=== PATIENT | male | born 1955 | race Caucasian/White ===

== ENCOUNTER 2017-11-26 10:18 | Day surgery (SDC) | payer OTHER, SELFPAY ==
[2017-11-26] VITALS (17 sets, daily range): BP systolic 95–138; BP diastolic 54–88; PULSE 69–88; RESP 14–20; TEMP 36.4–37.3; O2SAT 81–98; BMI 36.6
--- NOTE | 2017-11-26 | PATH_ITS ---
[facility] Accession Number: [id number] . 01 Material submitted: . APPENDIX . 02 Diagnosis: Appendix: Acute appendicitis. MRV/12/01/2017 . 02 Electronically signed: . Guanako Saenz MD, Pathologist NPI- [id number] . 01 Gross description: . The specimen is received in a container of formalin labeled with the patient's name and designated appendix. The specimen consists of a vermiform appendix measuring 6.0 cm long with an average diameter of 0.9 cm. The proximal margin is slightly more dilated. The proximal margin is stapled closed and will be painted with ink. The lumen is focally dilated and contains brown thick fluid. The wall is intact. No ruptured sites are grossly noted. The serosal surface is dull pink and baumann-robbins. The distal tip and mid portion are focally covered by fibrous adhesions. No definite exudate is grossly noted. Rn Field sections submitted in cassettes A1 and A2. ([id number]) /[facility] . 02 Pathologist provided ICD-10: K35.80 . 02 CPT . [id number] Performed at: 01 [facility] [address] [facility] [place] [facility] [place], [place], [place] [id number] MD Bismark Saucedo MD Phone: [phone] Performed at: 02 [facility] [address] [place], [place] [id number] MD Salvatore Viveros MD Phone: [phone]
[2017-11-26 10:37] LABS: Appearance Urine UA CLEAR; Bilirubin Urine UA NEGATIVE (NEGATIVE); Color Urine UA YELLOW; Glucose Urine UA NEGATIVE (Negative); Ketones Urine UA 1+ (NEGATIVE); Leukocyte Esterase Urine UA NEGATIVE (NEGATIVE); Nitrite Urine UA Negative (Negative); Occult Blood Urine UA TRACE-LYSED (Negative); Protein Urine UA NEGATIVE (Negative); Specific Gravity Urine UA 1.025 (1.000-1.035); Urobilinogen Urine UA 0.2 E.U./dL (0.2)
--- NOTE | 2017-11-26 10:52 | ED_ITS ---
HPI - Abdominal Pain General Chief Complaint: Abdominal Pain Stated Complaint: RIGHT SIDE ABDOMINAL PAIN Time Seen by Provider: 11/26/17 10:37 Source: patient and family Mode of arrival: ambulatory Limitations: no limitations History of Present Illness HPI narrative: Patient is a 62-year-old male who presents with abdominal pain. He said it started less start will confirm asleep more on the right side. He has had kidney stones in the past this is not quite feel like a kidney stone. He feels slightly nauseated but no vomiting. He has not had any fever. Yesterday he was feeling his normal self. He had barbecue for dinner. complaint: abdominal pain Related Data Home Medications Medication Instructions Recorded Confirmed aspirin 81 mg tablet,delayed 81 mg PO QPM 11/26/17 11/26/17 release atorvastatin 20 mg tablet 20 mg PO QPM 11/26/17 11/26/17 escitalopram 10 mg tablet 10 mg PO QPM 11/26/17 11/26/17 metoprolol tartrate 75 mg tablet 75 mg PO BID 11/26/17 11/26/17 Allergies Allergy/AdvReac Type Severity Reaction Status Date / Time No Known Drug Allergies Allergy Verified 11/26/17 14:16 Review of Systems Review of Systems All systems reviewed & are unremarkable except as noted in HPI and below Constitutional Denies chills, Denies fever(s), Denies lethargy and Denies weakness Cardiovascular Denies chest pain, Denies irregular heart rhythm, Denies lightheadedness, Denies palpitations, Denies dyspnea, Denies dyspnea on exertion and Denies orthopnea Respiratory Denies cough, Denies dyspnea, Denies dyspnea on exertion and Denies wheezing Gastrointestinal Gastrointestinal: Reports as per HPI, Reports system reviewed and no additional complaints, except as docu and Reports abdominal pain Musculoskeletal Denies back pain, Denies muscle weakness, Denies numbness and Denies tingling Neurologic Denies numbness, Denies tingling and Denies weakness Endocrine Denies palpitations Allergic/Immunologic Denies wheezing PFSH Medical History Cancer of kidney (Acute) Kidney stones (Acute) Hyperlipidemia (Chronic) Hypertension (Chronic) Surgical History History of nephrectomy (Resolved) Family History: Reviewed 11/26/17 by Raman Sykes MD Social History Smoking Status: Never smoker Exam Initial Vital Signs Initial Vital Signs: Vital Signs Temperature 98.2 F 11/26/17 10:24 Pulse Rate 78 11/26/17 10:24 Respiratory Rate 15 11/26/17 10:24 Blood Pressure 116/82 H 11/26/17 10:24 Pulse Oximetry 97 11/26/17 10:24 Const General: cooperative and well developed Nutritional Appearance: well nourished Orientation: alert, awake, oriented x3 and not confused Resp Effort & Inspection: normal respiratory effort, able to speak in complete sentences, no respiratory distress and no use of accessory muscles Auscultation: clear to auscultation bilaterally, no rales, no rhonchi and no wheezes Cardio Rate: regular rate Rhythm: regular rhythm Heart Sounds: no click, no gallops, no murmurs and no rubs Pulses: normal peripheral pulses GI Inspection: normal to inspection and non-distended Palpation: tender (Mild tenderness right lower quadrant and right side, no right upper quadrant tenderness negative Rojas sign) Skin General: no rashes or lesions noted, No jaundice and No petechiae Neuro General: alert, awake and oriented x3 Cranial Nerves: CN's II-XI intact bilaterally Course Orders Ordered: ED Orders 11/26/17 10:23 Urinalysis and Microscopic Stat 11/26/17 11:00 Complete Blood Count AUTO DIFF Stat Comprehensive Metabolic Panel Stat Lipase Stat 11/26/17 11:35 CT abdomen pelvis w con Stat Sodium Chloride (Normal Saline 0.9%) 1,000 mls @ 1,000 mls/hr IV CONT JOANA Last Infusion: 11/26/17 14:06 Dose: 0 mls/hr Admin: 11/26/17 11:27 Dose: 1,000 mls/hr Lactated Ringer's (Lactated Ringers) 1,000 mls @ 42 mls/hr IV CONT JOANA Last Admin: 11/26/17 14:06 Dose: 42 mls/hr Sodium Chloride (Normal Saline 0.9%) 1,000 mls @ 100 mls/hr IV CONT JOANA Discontinued Medications Cefotetan Disodium/Dextrose (Cefotan) 2 gm in 50 mls @ 0 mls/hr IV NOW ONE Stop: 11/26/17 14:05 Last Admin: 11/26/17 14:07 Dose: 50 mls/hr Ketorolac Tromethamine (Toradol) 30 mg IV NOW ONE Stop: 11/26/17 10:48 Last Admin: 11/26/17 11:25 Dose: 30 mg Consultations Consultation #1: Dr. Sykes in ED to evaluate. Vital Signs - 8 hr 11/26/17 10:24 11/26/17 11:45 11/26/17 13:00 Temperature 98.2 F Pulse Rate 78 84 71 Respiratory Rate 15 17 15 Blood Pressure 116/82 H Blood Pressure [Right Arm] 117/85 H 114/74 Pulse Oximetry 97 95 96 11/26/17 13:57 11/26/17 14:02 Temperature 98.5 F Pulse Rate 71 73 Respiratory Rate 15 20 Blood Pressure 130/86 H 138/88 H Blood Pressure [Right Arm] Pulse Oximetry 98 98 MDM - Abdominal Pain Lab Data Result diagrams: 11/26/17 11:00 11/26/17 11:00 Lab Results 11/26/17 11/26/17 11/26/17 Range/Units 10:23 11:00 11:00 WBC 9.9 (4.5-11.0) X10^3/uL RBC 4.60 (4.5-5.9) X10^6/uL Hgb 13.7 (13.5-17.5) g/dL Hct 40.4 L (41-53) % MCV 87.9 (80-100) fL MCH 29.8 (26-34) PG MCHC 33.9 (30-36) % RDW 14.3 (11.6-14.8) % Plt Count 212 (150-400) X10^3/uL Neut % (Auto) 84.6 H (50-75) % Lymph % (Auto) 9.4 L (25-40) % [place] % (Auto) 5.3 (3-14) % Eos % (Auto) 0.4 L (2-4) % Baso % (Auto) 0.3 (0-2) % Neut # (Auto) 8400 H (8618-1778) /uL Sodium 140 (137-145) mmol/L Potassium 4.3 (3.4-5.1) mmol/L Chloride 106 (98-107) mmol/L Carbon Dioxide 23 (22-32) mmol/L BUN 21 H (9-20) mg/dL Creatinine 0.90 (0.66-1.25) mg/dL Estimated GFR > 60.0 (>60) mL/min BUN/Creatinine Ratio 23.3 H (6-22) Glucose 110 (80-110) mg/dL Calcium 9.3 (8.4-10.2) mg/dL Total Bilirubin 0.5 (0.2-1.3) mg/dL AST 27 (17-59) IU/L ALT 59 (21-72) IU/L Alkaline Phosphatase 72 (38-126) U/L Total Protein 7.2 (6.3-8.2) g/dL Albumin 4.3 (3.5-5.0) g/dL Globulin 2.9 (1.7-4.1) g/dL Albumin/Globulin Ratio 1.5 (1.0-2.8) Lipase 100 (23-300) U/L Urine Color Yellow Urine Appearance Clear Urine pH 5.0 (4.5-8.0) Ur Specific [place] 1.025 (1.000-1.035) Urine Protein Negative (Negative) Urine Glucose (UA) Negative (Negative) g/dL Urine Ketones 1+ H (NEGATIVE) Urine Occult Blood Trace-lysed (Negative) Urine Nitrate Negative (Negative) Urine Bilirubin Negative (NEGATIVE) Urine Urobilinogen 0.2 (0.2) E.U./dL Ur Leukocyte Esterase Negative (NEGATIVE) Urine RBC 0-1/hpf (0-5/HPF) Urine WBC 0-1/hpf (0-5/HPF) Urine Bacteria Few (2-10) H (None) Ur Culture Indicated? Cult not indicated Micro UA Comment Not Reportable Imaging Data CT scan - abdomen: Attestation: I personally reviewed and interpreted this imaging study as follows: Radiologist's impression: PROCEDURE: CT ABDOMEN PELVIS W CON INDICATIONS: right lower quad TECHNIQUE: After the administration of intravenous contrast, 5 mm thick sections acquired from the diaphragm to the symphysis. 5 mm coronal and sagittal reformats were acquired. For radiation dose reduction, the following was used: automated exposure control, adjustment of mA and/or kV according to patient size. COMPARISON: None. FINDINGS: Image quality: Excellent. ABDOMEN: Lung bases: Lung bases are clear. Heart size is normal. Solid organs: Liver is normal in size and enhancement. Gallbladder is unremarkable. Biliary system is non dilated. Pancreas enhances normally. Spleen is normal in size and enhancement. No adrenal nodules. The kidneys demonstrate normal enhancement, without hydronephrosis. Deformity is present within the left kidney appearing postoperative. Peritoneum and bowel: Bowel loops are nonobstructive. The appendix is enlarged measuring 16 mm with surrounding inflammatory change. There is no appendicolith. No visualized perforation. No free fluid or air. Nodes and vessels: No retroperitoneal or mesenteric adenopathy by size criteria. Aorta and inferior vena cava are normal in size. Miscellaneous: No ventral hernias. PELVIS: Genitourinary: Bladder wall thickness is normal. Soft tissue density is present within the posterior bladder appearing to become contiguous with an enlarged prostate gland. Miscellaneous: No inguinal hernias or adenopathy. Bones: No suspicious bony lesions. No vertebral body compression fractures. IMPRESSION: 1. Markedly enlarged appendix with surrounding inflammatory change consistent with acute appendicitis. No visualized perforation or appendicolith. 2. Soft tissue density is present in the posterior inferior bladder appearing to become contiguous with an enlarged prostate gland. If concern for bladder neoplasm exists, contrast study allowing delayed images for contrast within the bladder is recommended. The above findings were discussed with Dr. Galilea Nice on 11/26/17 at 11:15 AM [place]. Dictated by: Bertha Freire M.D. on 11/26/2017 at 11:06 Approved by: Bertha Freire M.D. on 11/26/2017 at 11:20 MDM Narrative Medical decision making narrative: Patient's pain is much better after Toradol. No leukocytosis. CT does confirm acute appendicitis. Discharge Plan Departure Patient Disposition: Admitted As Inpatient Clinical Impression: Acute appendicitis Discharge Date/Time: 11/26/17 14:03 Interventions: ED Discharge Assessment Last Done: 11/26/17 13:57 Admit Date/Time: 11/26/17 13:53 Admit Provider: Raman Sykes
[2017-11-26 11:09] LABS: RBC Urine 0-1/HPF (0-5/HPF); WBC Urine 0-1/HPF (0-5/HPF)
[2017-11-26 11:10] LABS: Bacteria Urine Few (2-10); Culture Indicated Urine Cult Not Indicated
[2017-11-26 11:12] LABS: Add Manual Diff / Slide Review NO; Basophils Percent Auto 0.3 % (0-2); Eosinophils Percent Auto 0.4 % (2-4); Hematocrit 40.4 % (41-53); Hemoglobin 13.7 g/dL (13.5-17.5); Lymphocytes Percent Auto 9.4 % (25-40); Mean Corpuscular HGB Conc 33.9 % (30-36); Mean Corpuscular Hemoglobin 29.8 PG (26-34); Mean Corpuscular Volume 87.9 fL (80-100); Monocytes Percent Auto 5.3 % (3-14); Neutrophils Absolute Auto 8400 /uL (3000-5900); Neutrophils Percent Auto 84.6 % (50-75); Platelet Count 212 X10^3/uL (150-400); Red Cell Distribution Width 14.3 % (11.6-14.8); White Blood Cell Count 9.9 X10^3/uL (4.5-11.0)
[2017-11-26 11:25] LABS: Alanine Aminotransferase 59 IU/L (21-72); Albumin 4.3 g/dL (3.5-5.0); Albumin Globulin Ratio 1.5 (1.0-2.8); Alkaline Phosphatase 72 U/L (38-126); Aspartate Aminotransferase 27 IU/L (17-59); BUN Creatinine Ratio 23.3 (6-22); Bilirubin Total 0.5 mg/dL (0.2-1.3); Blood Urea Nitrogen 21 mg/dL (9-20); Calcium 9.3 mg/dL (8.4-10.2); Carbon Dioxide 23 mmol/L (22-32); Chloride 106 mmol/L (98-107); Estimated Glomerular Filt Rate > 60.0 mL/min (>60); Globulin 2.9 g/dL (1.7-4.1); Glucose 110 mg/dL (80-110); HEMOLYSIS < 15 (0-50); Lipase 100 U/L (23-300); Potassium 4.3 mmol/L (3.4-5.1); Sodium 140 mmol/L (137-145); Total Protein 7.2 g/dL (6.3-8.2)
[2017-11-26] MEDS: KETOROLAC 60 MG/2 ML VIAL 30 MG IV (11:25)
[2017-11-26] MEDS: SODIUM CHLORIDE 0.9% 1,000 ML 1000 ML IV (11:27)
--- NOTE | 2017-11-26 11:35 | DI.CT.S_ITS ---
PROCEDURE: CT ABDOMEN PELVIS W CON INDICATIONS: right lower quad TECHNIQUE: After the administration of intravenous contrast, 5 mm thick sections acquired from the diaphragm to the symphysis. 5 mm coronal and sagittal reformats were acquired. For radiation dose reduction, the following was used: automated exposure control, adjustment of mA and/or kV according to patient size. COMPARISON: None. FINDINGS: Image quality: Excellent. ABDOMEN: Lung bases: Lung bases are clear. Heart size is normal. Solid organs: Liver is normal in size and enhancement. Gallbladder is unremarkable. Biliary system is non dilated. Pancreas enhances normally. Spleen is normal in size and enhancement. No adrenal nodules. The kidneys demonstrate normal enhancement, without hydronephrosis. Deformity is present within the left kidney appearing postoperative. Peritoneum and bowel: Bowel loops are nonobstructive. The appendix is enlarged measuring 16 mm with surrounding inflammatory change. There is no appendicolith. No visualized perforation. No free fluid or air. Nodes and vessels: No retroperitoneal or mesenteric adenopathy by size criteria. Aorta and inferior vena cava are normal in size. Miscellaneous: No ventral hernias. PELVIS: Genitourinary: Bladder wall thickness is normal. Soft tissue density is present within the posterior bladder appearing to become contiguous with an enlarged prostate gland. Miscellaneous: No inguinal hernias or adenopathy. Bones: No suspicious bony lesions. No vertebral body compression fractures. IMPRESSION: 1. Markedly enlarged appendix with surrounding inflammatory change consistent with acute appendicitis. No visualized perforation or appendicolith. 2. Soft tissue density is present in the posterior inferior bladder appearing to become contiguous with an enlarged prostate gland. If concern for bladder neoplasm exists, contrast study allowing delayed images for contrast within the bladder is recommended. The above findings were discussed with Dr. Galilea Nice on 11/26/17 at 11:15 AM [facility]. Dictated by: Bertha Freire M.D. on 11/26/2017 at 11:06 Approved by: Bertha Freire M.D. on 11/26/2017 at 11:20
--- NOTE | 2017-11-26 13:58 | P.HP_ITS ---
History of Present Illness Date Patient Seen: 11/26/17 Time Patient Seen: 13:52 Chief complaint: RIGHT SIDE ABDOMINAL PAIN Narrative: Sridhar Archibald is a 62 year old male who presented to the emergency department with acute onset of right lower quadrant abdominal pain that began late last evening. 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 Pain is described as sharp and nonradiating. Pain is unrelenting. Symptoms are exacerbated by activity including riding in the automobile to the emergency department. Denies any fever or chills. No nausea or vomiting. Reports normal bowel function yesterday. Last ate a normal meal last evening but is currently anorexic. Denies dysuria or hematuria. Patient History Medical History Cancer of kidney (Acute) Kidney stones (Acute) Hyperlipidemia (Chronic) Hypertension (Chronic) Surgical History History of nephrectomy (Resolved) Family & Social History Family History: Reviewed 11/26/17 by Raman Sykes MD Safety & Behavioral: Feels Safe in Current Yes Environment Tobacco & Substance use: Smoking Status Never smoker alcohol intake frequency a few times a week Substance Use Type does not use Meds Home Medications Medication Instructions Recorded Confirmed Type aspirin 81 mg tablet,delayed 81 mg PO QPM 11/26/17 11/26/17 History release atorvastatin 20 mg tablet 20 mg PO QPM 11/26/17 11/26/17 History escitalopram 10 mg tablet 10 mg PO QPM 11/26/17 11/26/17 History metoprolol tartrate 75 mg tablet 75 mg PO BID 11/26/17 11/26/17 History Allergies Allergy/AdvReac Type Severity Reaction Status Date / Time No Known Drug Allergies Allergy Verified 11/26/17 10:24 Review of Systems Review of Systems All systems reviewed & are unremarkable except as noted in HPI and below Exam Vital Signs (past 8 hours): Vital Signs - 8 hr 3 11/26/17 10:24 11/26/17 11:45 11/26/17 13:00 Temperature 98.2 F Pulse Rate 78 84 71 Respiratory Rate 15 17 15 Blood Pressure 116/82 H Blood Pressure [Right Arm] 117/85 H 114/74 Pulse Oximetry 97 95 96 Pulse Oximetry 96 Oxygen Delivery Method Room Air Narrative Exam Narrative: Well-nourished well-developed moderately obese male lying comfortably in bed in no acute distress. is at the bedside. Alert orient x3. Afebrile in the emergency department. No tachycardia. Sclera are nonicteric Neck is supple Chest clear to auscultation bilaterally Abdomen is soft and nondistended but obese. No masses. He is focally tender in the right lower quadrant over McBurney's point with obvious involuntary guarding. No rebound tenderness. No hepatomegaly. He has a well-healed left upper quadrant subcostal scar consistent with prior nephrectomy. Extremities show no clubbing, cyanosis, or edema. Dorsal pedis pulses are palpable bilaterally. Objective Labs Result Diagrams: 11/26/17 11:00 11/26/17 11:00 Labs: Laboratory Results - last 24 hr 11/26/17 11/26/17 11/26/17 10:23 11:00 11:00 WBC 9.9 RBC 4.60 Hgb 13.7 Hct 40.4 L MCV 87.9 MCH 29.8 MCHC 33.9 RDW 14.3 Plt Count 212 Neut % (Auto) 84.6 H Lymph % (Auto) 9.4 L [place] % (Auto) 5.3 Eos % (Auto) 0.4 L Baso % (Auto) 0.3 Neut # (Auto) 8400 H Sodium 140 Potassium 4.3 Chloride 106 Carbon Dioxide 23 BUN 21 H Creatinine 0.90 Estimated GFR > 60.0 BUN/Creatinine Ratio 23.3 H Glucose 110 Calcium 9.3 Total Bilirubin 0.5 AST 27 ALT 59 Alkaline Phosphatase 72 Total Protein 7.2 Albumin 4.3 Globulin 2.9 Albumin/Globulin Ratio 1.5 Lipase 100 Urine Color Yellow Urine Appearance Clear Urine pH 5.0 Ur Specific [place] 1.025 Urine Protein Negative Urine Glucose (UA) Negative Urine Ketones 1+ H Urine Occult Blood Trace-lysed Urine Nitrate Negative Urine Bilirubin Negative Urine Urobilinogen 0.2 Ur Leukocyte Esterase Negative Urine RBC 0-1/hpf Urine WBC 0-1/hpf Urine Bacteria Few (2-10) H Ur Culture Indicated? Cult not indicated Micro UA Comment Not Reportable Assessment & Plan Plan: Plan: 62-year-old male with signs and symptoms consistent with acute appendicitis. I personally reviewed the CT scan done to the emergency department which confirms an inflamed enlarged appendix. No obvious abscess or perforation at this point. I discussed my impression findings with the patient and his in detail. I recommend laparoscopic appendectomy. Technical details of the operation were discussed. Risks, benefits, alternatives were explained. Risks including but not limited to anesthesia, bleeding, infection, pain, abscess, scars, need to convert to open procedure, need for drains, appendiceal stump leak, mucocele, need for further surgery, need for interventional radiology procedures, colon injury, small bowel injury, liver injury, gastric injury, bladder injury, right ureter injury, and need for further major abdominal surgery were all discussed in detail. All questions were answered to his satisfaction, and he voiced understanding. Consent was placed on the chart. Proceed as above urgently to the OR this afternoon.
[2017-11-26] MEDS: LACTATED RINGERS 1,000 ML 42 ML IV ×2 (14:06→15:49)
[2017-11-26] MEDS: CEFOTETAN 2 GM/50 ML PIGGYBACK IV (14:07)
[2017-11-26] MEDS: BUPIVACAINE 0.5% (PF) 30 ML VIAL INJ (14:59)
[2017-11-26] MEDS: LIDOCAINE 1% W/EPI INJ 20 ML INJ (15:02)
--- NOTE | 2017-11-26 16:18 | P.OP_ITS ---
Operative Date/Time/Diagnoses - Date of procedure: 11/26/17 Time of procedure: 16:10 Pre-op diagnosis: Acute suppurative appendicitis Post-op diagnosis: same Procedure & Clinicians Procedure: Laparoscopic appendectomy Same procedure as scheduled: Yes Indications: 62-year-old male who presented with acute progressive right lower quadrant abdominal pain. Examination and evaluation were consistent with acute appendicitis. Urgent laparoscopic appendectomy was recommended today. Surgeon: Raman Sykes Click Yes if Unassisted: Yes Anesthesia Type: General Operative Notes Findings: 1. Acutely inflamed suppurative appendix without evidence of rupture or gross contamination. 2. Otherwise grossly normal small bowel, colon, liver, and omentum within the limitations of laparoscopic visualization Closure Type: primary Specimen(s): other (Appendix) Implants & Drains: None Applied: catheter (Schroeder catheter for the case subsequently removed prior to extubation) Estimated Blood Loss (mL): 25 Blood products transfused: none Procedure in detail: Patient is brought to the operating room placed supine on the table. After satisfactory induction of anesthesia a Schroeder catheter was inserted to decompress the urinary bladder. Abdomen was prepped and draped in usual sterile fashion. A SCOAP time-out was performed per standard protocol. A 1:1 mixture 1% lidocaine with 1:100,000 epinephrine and 0.5% plain Marcaine was injected in the skin and subcutaneous tissue at the superior aspect of the umbilicus for postoperative analgesia. Vertical midline incision was created at superior aspect of the umbilicus with a 11. Scalpel blade. Blunt dissection revealed the rectus fascia which was divided in the midline using a 11. Scalpel blade. Adalgisa clamps were used to secure the rectus fascia and elevated into the operative field. Two individual interrupted 0 Vicryl suture were placed to secure the fascia. Underlying peritoneum was entered under direct visualization between hemostats using a 11 scalpel blade. Blunt 12 mm Christianson trocar was then inserted and a carbon dioxide pneumoperitoneum was created. Abdomen was visually explored with a 30 degree 5 mm laparoscopic. Findings are as above. There was a small amount of free fluid around the appendix but no gross pus. Under direct laparoscopic visualization a lower midline incision was created with a 11 scalpel blade after achieving local anesthesia, and a 5 mm trocar was inserted under direct visualization. In a similar fashion the left lateral lower quadrant was anesthetized with local anesthesia and a 5 mm trocar was inserted. Camera was then relocated to the inferior 5 mm port and Colin graspers were inserted through the other 2 ports to manipulate the appendix. Barby cuadra was brought onto the operative field and inserted through the 12 mm port in order to perform dissection to isolate the mesoappendix and the base of the appendix from surrounding inflammatory tissue. Hemostasis was achieved on small vessels using monopolar cautery. A single application of the laparoscopic Endo-DARVIN 45 mm stapler with a vascular staple load was employed to divide the mesoappendix. However, there was evidence of bleeding between the rodrigo from the appendiceal artery which was then controlled with laparoscopic 5 mm clip device. Base of the appendix was divided with a 2nd application of the Endo-DARVIN 45 mm stapler using a standard tissue load. Specimen was placed in an endo- pouch and retrieved through the 12 mm umbilical trocar site. Copious amounts of sterile saline irrigation were then employed to irrigate the right lower quadrant, right pericolic gutter, and pelvis which was then suctioned from the abdomen and noted to be clear. Both staple lines were meticulously examined with the laparoscope and noted to be intact as well as hemostatic. Instruments and trocars were removed under direct visualization and hemostasis verified. Carbon dioxide was evacuated. Fascia at the umbilical site was secured with the previously placed 0 Vicryl suture. A 3rd 0 Vicryl suture was also placed to secure the closure. Skin at all 3 incisions was closed in a running subcuticular fashion with 4 0 Monocryl suture. Dermal adhesive was applied at the skin. Schroeder catheter was removed and anesthesia reversed. Patient extubated in the operating room. He was taken recovery in stable condition. Complications: none Condition: stable Disposition: PACU Plan for aftercare: 1. Admit to Surgical unit for ongoing convalescence. 2. Likely home tomorrow
[2017-11-26] MEDS: ESCITALOPRAM 10 MG TABLET PO (16:58)
[2017-11-26] MEDS: ATORVASTATIN 20 MG TABLET PO (16:58)
[2017-11-26] MEDS: ASPIRIN EC 81 MG TABLET PO (16:58)
--- NOTE | 2017-11-26 19:50 | PC.NURSE ---
Addendum entered by Crystal Piña R.N. 11/26/17 20:07: Pt up and ambulating in hallways, 4 laps of floor. Denies pain, I can tell i had a procedure. Drinking fluids, LFA SL and flushing well. Original Note: 1700- Pt arrived @ 1640 from PACU to room 218 via bed. VSS, 95%RA, LS clear, denies SOB. ABD soft, round, and non tender to palpatoin, 3 lap sites; umbilicus, MLQ and MLQ all well aproximated with dermabond, CDI. Denies ABD pain at this time, denies nausea, BT+, reg diet for dinner and tolerating well. Provided I.S. and using appropriately for 2500. Samsonrinal at bed side and instructed pt to use call light, if perfers to use BRP. , Chrissie in room. Call light in reach and bed alarm on for safety.
[2017-11-26] MEDS: METOPROLOL 25 MG TABLET 75 MG PO (21:01)
[2017-11-26] MEDS: OXYCODONE IR 5 MG TABLET PO (21:21)
[2017-11-27] MEDS: OXYCODONE IR 5 MG TABLET PO (01:06)
[2017-11-27 04:55] VITALS: BP 108/67; PULSE 75; RESP 16; TEMP 36.5; O2SAT 94
[2017-11-27] MEDS: ACETAMINOPHEN 325 MG TABLET 650 MG PO (07:12)
[2017-11-27 07:45] VITALS: BP 115/74; PULSE 68; RESP 18; TEMP 36.7; O2SAT 99
--- NOTE | 2017-11-27 11:25 | P.DS_ITS ---
History of Present Illness Date Patient Seen: 11/27/17 Time Patient Seen: 11:23 Chief complaint: RIGHT SIDE ABDOMINAL PAIN Narrative: Sridhar Archibald is a 62 year old male who presented with right lower quadrant abdominal pain to the emergency department yesterday. Examination and evaluation were consistent with acute appendicitis. He required urgent laparoscopic appendectomy yesterday afternoon. Discharge Providers Date of admission: 11/26/17 13:53 Discharge provider: Raman Sykes MD Exam Vital Signs (past 8 hours): Vital Signs - 8 hr 3 11/27/17 04:55 11/27/17 07:45 Temperature 97.7 F 98.1 F Pulse Rate 75 68 Respiratory Rate 16 18 Blood Pressure 108/67 115/74 Pulse Oximetry 94 99 Pulse Oximetry 99 Oxygen Delivery Method Room Air Oxygen Flow Rate 0 Narrative Exam Narrative: Well-nourished well-developed mildly obese male resting comfortably in bed in no acute distress. Alert oriented x3. Sclera nonicteric Chest clear to auscultation Abdomen soft, nondistended, no masses. Incisions are clean, dry, and intact without erythema, hematoma, or seroma. No wound drainage. He is appropriately tender to palpation but without guarding or rebound. Extremities show no clubbing, cyanosis, or edema Objective Labs Result Diagrams: 11/26/17 11:00 11/26/17 11:00 Labs: Laboratory Results - last 24 hr 11/26/17 11:00 Sodium 140 Potassium 4.3 Chloride 106 Carbon Dioxide 23 BUN 21 H Creatinine 0.90 Estimated GFR > 60.0 BUN/Creatinine Ratio 23.3 H Glucose 110 Calcium 9.3 Total Bilirubin 0.5 AST 27 ALT 59 Alkaline Phosphatase 72 Total Protein 7.2 Albumin 4.3 Globulin 2.9 Albumin/Globulin Ratio 1.5 Lipase 100 Discharge Plan Discharge Plan Patient Disposition: Home, Self-Care Provider Discharge Instructions Diet: Diet as Tolerated Activity: No driving while taking opioid pain medication May shower beginning today May walk as much as desired May climb stairs May ride in vehicle No heavy lifting more than 20 lb for 1-2 weeks Cold/Heat Therapy: May apply ice pack to incisions as needed for comfort Wound Care Report to your healthcare provider any signs of infection, such as:: chills, fever, increased pain and unusual drainage Discharge Data Attending Provider: Raman Sykes Admit Date/Time: 11/26/17 13:53 Quality VTE Deep Vein Thrombosis/Pulmonary Embolism Present on Admission: No
[2017-11-27 11:54] VITALS: BP 120/73; PULSE 70; RESP 16; TEMP 36.7; O2SAT 94
--- NOTE | 2017-11-27 13:34 | CM.DANOTE ---
DCP: assessment: Case received, EMR reviewed. Documentation revealed that pt is a 62 year old male who admitted yesterday to care of surgeon: Dr. Sykes Payer: [facility] Pt went to surgery yesterday for an urgent lap appendectomy, arrived to medical floor at 1640 and was ok'd for home late morning by Dr. Sykes. Went to room to check in with pt. RN Farzana confirmed he had left with his for home at about noon. She states no concerns re the d/c plan were identified by the care team members or by the pt and his .
== END 2017-11-27 12:05 | disposition home or self-care (01) ==
LOC: ED 13:17 → AC 13:55 → OR 11-27 14:50
PROVIDERS: Emergency Provider Emergency Medicine; Visit Provider Surgery
PROC: 0DTJ4ZZ Resection of Appendix, Percutaneous Endoscopic Approach (ICD-10-PCS; CPT 44970; principal; 2017-11-26 14:00)
DX: K35.80 Unspecified acute appendicitis (principal); I10 Essential (primary) hypertension; E78.5 Hyperlipidemia, unspecified
CPT/HCPCS: 44970; 36591; 74177; 80053; 81001; 81003; 83690; 85025; 96361; 96374; 96375; 99220; 99282; 99284; J0131; J0330; J1885; J2250; J2405; J2704; J3010; Q9967

== ENCOUNTER → 2019-03-23 10:35 | Outpatient (CLI) | payer OTHER, SELFPAY ==
[2017-11-26 16:40] VITALS: BMI 36.6
[2019-03-23 12:04] LABS: Alanine Aminotransferase 52 IU/L (21-72); Albumin 4.3 g/dL (3.5-5.0); Albumin Globulin Ratio 1.7 (1.0-2.8); Alkaline Phosphatase 67 U/L (38-126); Aspartate Aminotransferase 30 IU/L (17-59); Bilirubin Total 0.5 mg/dL (0.2-1.3); Blood Urea Nitrogen 18 mg/dL (9-20); Carbon Dioxide 26 mmol/L (22-32); Chloride 104 mmol/L (98-107); Cholesterol 130 mg/dL (140-199); Estimated Glomerular Filt Rate > 60.0 mL/min (>60); Globulin 2.6 g/dL (1.7-4.1); Glucose 98 mg/dL (80-110); HDL Cholesterol 42 mg/dL (40-60); HEMOLYSIS < 15 (0-50); LDL Cholesterol Calculated 63 mg/dL (<100); Potassium 4.9 mmol/L (3.4-5.1); Sodium 139 mmol/L (137-145); Total Protein 6.9 g/dL (6.3-8.2); Triglycerides 123 mg/dL (35-150)
[2019-03-23 12:33] LABS: Prostate Specific Antigen 3.47 ng/mL (0.10-4.00)
== END ==
PROVIDERS: Visit Provider Internal Medicine Cardiovascular Disease
DX: R97.20 Elevated prostate specific antigen [PSA] (principal); I47.1 Supraventricular tachycardia; E78.5 Hyperlipidemia, unspecified
CPT/HCPCS: 36415; 80053; 80061; 84153

== ENCOUNTER → 2021-05-23 10:34 | Outpatient (CLI) | payer OTHER, SELFPAY ==
[2017-11-26 16:40] VITALS: BMI 36.6
[2021-05-23 11:14] LABS: Add Manual Diff / Slide Review NO; Basophils Absolute Auto 0 /uL (0-100); Basophils Percent Auto 0.9 % (0-2); Eosinophils Absolute Auto 200 /uL (0-450); Eosinophils Percent Auto 4.6 % (2-4); Hematocrit 42.9 % (41-53); Hemoglobin 14.2 g/dL (13.5-17.5); Lymphocytes Absolute Auto 1200 /uL (1100-4500); Lymphocytes Percent Auto 24.1 % (25-40); Mean Corpuscular HGB Conc 33.2 % (30-36); Mean Corpuscular Volume 87.4 fL (80-100); Monocytes Absolute Auto 300 /uL (0-900); Monocytes Percent Auto 6.7 % (3-14); Neutrophils Absolute Auto 3200 /uL (1500-7000); Neutrophils Percent Auto 63.7 % (50-75); Platelet Count 206 X10^3/uL (150-400); Red Blood Cell Count 4.91 X10^6/uL (4.5-5.9); White Blood Cell Count 5.1 X10^3/uL (4.5-11.0)
[2021-05-23 11:35] LABS: Alanine Aminotransferase 49 IU/L (<50); Albumin 4.5 g/dL (3.5-5.0); Albumin Globulin Ratio 1.7 (1.0-2.8); Alkaline Phosphatase 71 U/L (38-126); Aspartate Aminotransferase 35 IU/L (17-59); BUN Creatinine Ratio 22.5 (6-22); Bilirubin Total 0.4 mg/dL (0.2-1.3); Blood Urea Nitrogen 20 mg/dL (9-20); Carbon Dioxide 24 mmol/L (22-32); Chloride 107 mmol/L (98-107); Cholesterol 134 mg/dL (140-199); Estimated Glomerular Filt Rate > 60.0 mL/min (>60); Globulin 2.6 g/dL (1.7-4.1); Glucose 99 mg/dL (80-110); HDL Cholesterol 41 mg/dL (40-60); HEMOLYSIS 46 (0-50); LDL Cholesterol Calculated 78 mg/dL (<100); Potassium 5.1 mmol/L (3.4-5.1); Sodium 139 mmol/L (137-145); Total Protein 7.1 g/dL (6.3-8.2); Triglycerides 73 mg/dL (35-150)
[2021-05-23 11:38] LABS: Hemoglobin A1C% w Est Avg Glu 5.3 % (4.0-6.0)
[2021-05-23 12:00] LABS: Prostate Specific Antigen 4.44 ng/mL (0.10-4.00)
[2021-05-24 15:18] LABS: Thyroid Stimulating Hormone 2.73 uIU/mL (0.47-4.68)
== END ==
PROVIDERS: Referring Provider Internal Medicine Cardiovascular Disease; Visit Provider Internal Medicine Cardiovascular Disease
DX: Z13.1 Encounter for screening for diabetes mellitus (principal); I47.1 Supraventricular tachycardia; R06.02 Shortness of breath; E78.5 Hyperlipidemia, unspecified
CPT/HCPCS: 36415; 80053; 80061; 83036; 84153; 84439; 84443; 85025

== ENCOUNTER 2021-05-31 18:55 | Emergency (ER) | payer OTHER, SELFPAY ==
[2017-11-26 16:40] VITALS: BMI 36.6
[2021-05-31 18:58] VITALS: BP 181/103; PULSE 70; RESP 15; TEMP 36.1; O2SAT 98; BMI 35.9
--- NOTE | 2021-05-31 19:01 | DI.RAD.S_ITS ---
PROCEDURE: XR ANKLE RT MIN 3V INDICATIONS: rolled ankle TECHNIQUE: Three views of the ankle were acquired. COMPARISON: None. FINDINGS: Bones: No fractures or dislocations. There are moderate degenerative changes along the medial and lateral malleoli as well as along the anterior tibiotalar joint. There is enthesopathy at the Achilles tendon insertion and a small plantar calcaneal spur. Ankle mortise is normally aligned. No suspicious bony lesions. Soft tissues: Small tibiotalar joint is possibly present. The Achilles tendon is normal. IMPRESSION: 1. No visible fractures. 2. Small tibiotalar joint effusion. 3. Degenerative changes. Dictated by: Mendy Da Silva M.D. on 05/31/2021 at 19:48 Approved by: Mendy Da Silva M.D. on 05/31/2021 at 19:50
--- NOTE | 2021-05-31 19:24 | DI.CT.S_ITS ---
PROCEDURE: CT HEAD/BRAIN WO CON INDICATIONS: glf,takes asa daily TECHNIQUE: Noncontrast 4.5 mm thick angled axial sections acquired from the foramen magnum to the vertex, with coronal and sagittal reformats. For radiation dose reduction, the following was used: automated exposure control, adjustment of mA and/or kV according to patient size. COMPARISON: None. FINDINGS: Image quality: Excellent. CSF spaces: Basal cisterns are patent. No extra-axial fluid collections. The ventricles are symmetric in size and shape. Brain: No intracranial bleeds or masses. There is cerebral volume loss for age, with resultant ventricular and sulcal prominence. There are minimal periventricular and deep white matter chronic small vessel ischemic changes. Skull and face: Calvarium and visualized facial bones appear intact, without suspicious lesions. Sinuses: Visualized sinuses and mastoids are clear. IMPRESSION: No CT evidence of acute intracranial process. Dictated by: Mendy Da Silva M.D. on 05/31/2021 at 19:58 Approved by: Mendy Da Silva M.D. on 05/31/2021 at 19:59
--- NOTE | 2021-05-31 20:22 | ED_ITS ---
HPI - Fall General Chief Complaint: Fall Stated Complaint: Fall, Hit Nose/Rolled Rt Ankle Time Seen by Provider: 05/31/21 20:19 Source: patient Mode of arrival: Ambulatory History of Present Illness HPI Narrative: 65M daily smoker with history of HTN, hyperlipidemia presents with an accidental ground level fall when he stepped awkwardly on his right ankle and fell forward striking his nose. He denies prodromal symptoms such as chest pain, SOB, dizziness, or lightheadedness. He has right ankle pain, which is a bit worse with ambulation, but he was able to walk in. He denies LOC, N/V, or neuro symptoms such as blurred vision, numbness or tingling. He denies any bloody nose. He takes no blood thinners. Related Data Home Medications Medication Instructions Recorded Confirmed aspirin 81 mg tablet,delayed 81 mg PO QPM 11/26/17 12/10/17 release (Adult Low Dose Aspirin) atorvastatin 20 mg tablet 20 mg PO QPM 11/26/17 12/10/17 escitalopram oxalate 10 mg tablet 10 mg PO QPM 11/26/17 12/10/17 (Lexapro) metoprolol tartrate 75 mg tablet 75 mg PO BID 11/26/17 12/10/17 Previous Rx's Medication Instructions Recorded oxycodone 5 mg tablet 5 mg PO Q4-6H PRN #20 tab 11/27/17 Allergies Allergy/AdvReac Type Severity Reaction Status Date / Time No Known Drug Allergies Allergy Verified 05/31/21 18:58 Review of Systems Review of Systems Narrative: GENERAL: Denies chills, fatigue, malaise, fever, sweats. HEENT: Denies sinus pain, ear pain, sore throat, difficulty swallowing, dizziness. RESPIRATORY: Denies dyspnea, cough, wheezing, hemoptysis, sputum. CARDIOVASCULAR: Denies chest pain, palpitations, orthopnea, edema, GASTROINTESTINAL: Denies nausea, vomiting, abdominal pain, diarrhea, constipation, melena. : Denies dysuria, frequency, incontinence, hematuria, urinary retention. MUSCULOSKELETAL: See HPI SKIN: Denies rash, skin lesions, or other NEUROLOGIC: Denies weakness, headache, numbness, change in speech, confusion, seizures, incoordination. PSYCHIATRIC: No concerning psychosocial issues. 12 point review of systems is negative except for those stated above Patient History Medical History Cancer of kidney Hyperlipidemia Hypertension Kidney stones Surgical History History of nephrectomy Social History household members: spouse and family Smoking Status: Current some day smoker Smoking Status: Current some day smoker tobacco type: cigars alcohol intake frequency: holidays/special occasions only Substance Use Type: does not use Exam Narrative Exam Narrative: GENERAL: [65] year old patient appears stated age. Well-developed patient, in mild distress. GCS 15 HEAD: Atraumatic. Normocephalic. EYES: Pupils equal round and reactive. Extraocular motions intact. No scleral icterus. No injection or drainage. ENT: Superficial abrasion on bridge of nose. Nose without bleeding, purulent drainage. Throat without erythema, tonsillar hypertrophy or exudate. Airway patent. NECK: Trachea midline. Non tender CARDIOVASCULAR: Regular rate and rhythm without murmurs, gallops, or rubs. RESPIRATORY: Clear to auscultation. Breath sounds equal bilaterally. No wheezes, rales, or rhonchi. GASTROINTESTINAL: Abdomen soft, non-tender, nondistended. EXTREMITIES:Full but painful ROM of R ankle, tender over medial malleolus. Closed, and N/V intact. BACK: Nontender without deformity or crepitance. No flank tenderness. NEURO: AOx3. SKIN: No rash or erythema of visible areas Initial Vital Signs Initial Vital Signs: Vital Signs Temperature 97.0 F L 05/31/21 18:58 Pulse Rate 70 05/31/21 18:58 Respiratory Rate 15 05/31/21 18:58 Blood Pressure 181/103 H 05/31/21 18:58 Pulse Oximetry 98 05/31/21 18:58 Course Orders Ordered: ED Orders 05/31/21 19:01 XR ankle RT min 3V Stat 05/31/21 19:24 CT head/brain wo con Stat Vital Signs Vital signs: Vital Signs - 8 hr 05/31/21 18:58 Temperature 97.0 F L Pulse Rate 70 Respiratory Rate 15 Blood Pressure 181/103 H Pulse Oximetry 98 MDM - Fall Imaging Data CT scan - head: Radiologist's Impression: Sridhar Archibald??65??M??1955 ? Allergy/Adv: No Known Drug Allergies (More??) Close Head CT (Signed) Mendy Da Silva - 05/31/21 Ankle X-Ray (Signed) Mendy Da Silva - 05/31/21 Abdomen/Pelvis CT (Signed) Bertha Freire - 11/26/17 Launch?[place] [address] CT Scan Report Signed Patient: Srdihar Archibald MR#: [id number] : 1955 Acct:[id number] Age/Sex: 65 / M Date of Service: 05/31/21 Loc: ED Accession Number: [id number] ?? Procedure: CT head/brain wo con Ordering Provider: Tucker Randolph D.O. PROCEDURE:? CT HEAD/BRAIN WO CON ? INDICATIONS:? glf,takes asa daily ? TECHNIQUE:? Noncontrast 4.5 mm thick angled axial sections acquired from the foramen magnum to the vertex, with coronal and sagittal reformats.? For radiation dose reduction, the following was used:? automated exposure control, adjustment of mA and/or kV according to patient size.? ? COMPARISON:? None. ? FINDINGS:? Image quality:? Excellent.? ? CSF spaces:? Basal cisterns are patent.? No extra-axial fluid collections.? The ventricles are symmetric in size and shape.? ? Brain:? No intracranial bleeds or masses.? There is cerebral volume loss for age, with resultant ventricular and sulcal prominence.? There are minimal periventricular and deep white matter chronic small vessel ischemic changes. ? Skull and face:? Calvarium and visualized facial bones appear intact, without suspicious lesions.? ? Sinuses:? Visualized sinuses and mastoids are clear.? ? IMPRESSION:? No CT evidence of acute intracranial process.? ? ? Dictated by: Mendy Da Silva M.D. on 05/31/2021 at 19:58 ? ? Approved by: Mendy Da Silva M.D. on 05/31/2021 at 19:59 ? Extremity x-ray #1: Radiologist's Impression: ? Close Head CT (Signed) Mendy Da Silva - 05/31/21 Ankle X-Ray (Signed) Mendy Da Silva - 05/31/21 Abdomen/Pelvis CT (Signed) Bertha Freire - 11/26/17 Launch?[address] [address] XRay Report Signed Patient: Sridhar Archibald MR#: [id number] : 1955 Acct:[id number] Age/Sex: 65 / M Date of Service: 05/31/21 Loc: ED Accession Number: [id number] ?? Procedure: XR ankle RT min 3V Ordering Provider: Tucker Randolph D.O. PROCEDURE:? XR ANKLE RT MIN 3V ? INDICATIONS:? rolled ankle ? TECHNIQUE:? Three views of the ankle were acquired.? ? COMPARISON:? None. ? FINDINGS:? ? Bones:? No fractures or dislocations.? There are moderate degenerative changes along the medial and lateral malleoli as well as along the anterior tibiotalar joint.? There is enthesopathy at the Achilles tendon insertion and a small plantar calcaneal spur.? Ankle mortise is normally aligned.? No suspicious bony lesions.? ? Soft tissues:? Small tibiotalar joint is possibly present.? The Achilles tendon is normal. ? ? IMPRESSION:? 1. No visible fractures.? 2. Small tibiotalar joint effusion. 3. Degenerative changes.? Dictated by: Mendy Da Silva M.D. on 05/31/2021 at 19:48 ? ? Approved by: Mendy Da Silva M.D. on 05/31/2021 at 19:50 ? Discharge Plan Departure Patient Disposition: Home Clinical Impression: Ankle sprain, Abrasion of nose Instructions: How to Prevent Falls Activity Restrictions/Additional Instructions: *You have been diagnosed with [fall with ankle sprain and abrasion on your nose. Your history, physical exam and and imaging including CT scan of your head and ankle x-ray are very reassuring. *What to do: *Please continue to take your regular medications as directed. [ ] New medication prescriptions sent to your pharmacy: [ ] [ ] New medication written as a paper prescription [x ] No new medications given *Please follow up with your primary care provider in 2-3 days, call for an appointment. Let them know you were seen in the Emergency Department and that we ask that you be seen in follow up. We will electronically transmit a record of today's note if your PCP is in our system *If you do not have a primary care provider please contact the [facility] Resource line at [phone]. They will ask some questions about your medical history and help get you set up with a doctor in the community. *Return to Emergency Department if you should have any new, worsening or concerning symptoms, such as [fever greater than 101 F, shaking chills, worsening pain, persistent vomiting or other bothersome symptoms] Prescriptions: No Action aspirin [Adult Low Dose Aspirin] 81 mg tablet,delayed release (DR/EC) 81 mg PO QPM 0RF escitalopram oxalate [Lexapro] 10 mg tablet 10 mg PO QPM 0RF metoprolol tartrate 75 mg tablet 75 mg PO BID 0RF atorvastatin 20 mg tablet 20 mg PO QPM 0RF oxycodone 5 mg tablet 5 mg PO Q4-6H PRN (Reason: pain) Qty: 20 0RF
[2021-05-31 21:29] VITALS: BP 133/83; PULSE 70; RESP 18; O2SAT 99
== END 2021-05-31 21:30 | disposition home or self-care (01) ==
PROVIDERS: Emergency Provider Emergency Medicine
DX: S93.401A Sprain of unspecified ligament of right ankle, initial encounter (principal); S00.31XA Abrasion of nose, initial encounter; W01.10XA Fall on same level from slipping, tripping and stumbling with subsequent striking against unspecified object, initial encounter
CPT/HCPCS: 70450; 73610; 99283; 99284

== ENCOUNTER → 2021-07-04 10:10 | Outpatient (CLI) | payer OTHER, SELFPAY ==
[2017-11-26 16:40] VITALS: BMI 36.6
[2021-07-04 12:42] LABS: COVID19 -Nasal RAPID Negative (Negative)
== END ==
PROVIDERS: Visit Provider Nurse Practitioner Family
DX: Z01.812 Encounter for preprocedural laboratory examination (principal); Z20.822 Contact with and (suspected) exposure to COVID-19
CPT/HCPCS: 87635

== ENCOUNTER → 2021-07-05 10:32 | Outpatient (CLI) | payer OTHER, SELFPAY ==
[2017-11-26 16:40] VITALS: BMI 36.6
--- NOTE | 2021-07-06 11:38 | PM.TREADMILL ---
Cardiac Stress Test Report Referral & Results Date Patient Seen: 07/06/21 Time Patient Seen: 11:38 Requesting provider: Zeinab Hernandez Indication: Dsypnea Rest ECG: Sinus bradycardia with T wave inversion III Procedure Note: After Lexiscan injection, had minimal dsypnea but chest discomfort. After Lexiscan injection had T wave inversion in II, III, aVF No ectopy Impression: Equivocal Lexiscan injection MIBI images pending Please note: Actual ECG tracings can be found in the PACS system.
--- NOTE | 2021-07-06 17:45 | DI.NM.S_ITS ---
DATE OF SERVICE: 07/05/2021 PROCEDURE: Pharmacological perfusion study. INDICATION: Shortness of breath with history of PSVT. RADIOPHARMACEUTICAL: 27.5 millicurie technetium-99m Myoview IV was injected at stress and 25.7 millicurie technetium-99m Myoview IV was injected at rest. CARDIAC STRESS: The patient underwent IV Lexiscan perfusion study under the supervision of an attending staff using standard intravenous Lexiscan, as per protocol. Remained hemodynamically stable. No chest pain. Had minimal dyspnea. Baseline EKG revealed sinus rhythm with some nonspecific ST-T changes. During Lexiscan infusion, the patient has inferolateral asymmetrical T-wave inversion with some nonspecific ST changes. No significant sustained arrhythmias seen. RAW DATA: There is increased subdiaphragmatic activity. Patient's weight is 257 pounds. GATED STUDY: Resting LV ejection fraction is 70 percent and stress LV ejection fraction is 74 percent without any obvious wall motion abnormalities. Resting end-diastolic volume 115 mL. TID ratio 0.97, which is within normal limits. Lung/heart ratio 0.29, which is within normal limits. MYOCARDIAL PERFUSION SCAN: Stress supine, resting supine and stress prone images were compared to each other. Stress supine and resting supine images revealed large size, severely decreased perfusion of inferior wall extending into the inferolateral wall and inferoapex which got significantly improved during stress prone images, suggestive of tissue attenuation artifact. No obvious reversible ischemia. CONCLUSION: I will call this study likely a normal myocardial perfusion study with significant diaphragmatic tissue attenuation artifact, which got resolved during stress prone images. Preserved left ventricular function. No transient ischemic dilatation. Nonspecific ST-T changes during Lexiscan. Overall low-risk myocardial perfusion study. Sridhar Archibald - JOEY/carolina/herlinda doc#: [id number]/job#: [id number] dd: 07/06/2021 16:55:00 dt: 07/06/2021 17:33:00 DICTATING /COPIES TO: Yohana Lowery MD COPIES MNE: YOANNA;
== END ==
PROVIDERS: Referring Provider Internal Medicine Cardiovascular Disease; Visit Provider Internal Medicine Cardiovascular Disease
DX: R06.02 Shortness of breath (principal); R06.00 Dyspnea, unspecified; I47.1 Supraventricular tachycardia
CPT/HCPCS: 78452; 93017; A9502; J2785

== ENCOUNTER 2022-09-30 09:40 | Emergency (ER) | payer MEDICARE, OTHER, SELFPAY ==
[2017-11-26 16:40] VITALS: BMI 36.6
[2022-09-30] VITALS (8 sets, daily range): BP systolic 122–150; BP diastolic 68–87; PULSE 64–79; RESP 16–19; TEMP 36.7; O2SAT 94–98; BMI 38.3
--- NOTE | 2022-09-30 11:37 | DI.CT.S_ITS ---
PROCEDURE: CT KIDNEY URETER BLADDER (KUB) INDICATIONS: hematuria TECHNIQUE: Axial sections were acquired from the lung bases to the pubic symphysis. Coronal and sagittal reformats were performed. For radiation dose reduction, the following was used: automated exposure control, adjustment of mA and/or kV according to patient size. COMPARISON: [facility], CT, CT ABDOMEN PELVIS W CON, 11/26/2017, 11:32. FINDINGS: Image quality: Good Lower chest: Mild fluid and esophagus, along with a small hiatal hernia. Solid organs: The liver is unremarkable. Gallbladder is unremarkable. No pathologic dilation of the biliary tree or pancreatic duct. No splenomegaly. No adrenal nodules. Suspected hyperattenuating, hemorrhagic cyst is seen in the left kidney, measuring over 70 Hounsfield units. The left renal clip is present, as before. There is focal scarring and postsurgical changes in the left kidney. Subcentimeter lesions are too small to characterize, Bosniak 2 by proposed 2019 guidelines. No obstructing renal stone is identified. No calcified intrarenal calculi identified. Vessels and lymph nodes: No pathologic adenopathy. No abdominal aortic aneurysm. Bowel and peritoneum: No small bowel obstruction. There are colonic diverticula. No pathologic ascites. Body wall: Small periumbilical and umbilical fat containing hernias. Pelvis: Moderate bladder wall thickening, under distended, limiting evaluation. The prostate is mildly enlarged heterogeneous and not well evaluated on CT. Bones: There are degenerative changes. No acute or suspicious osseous abnormality. IMPRESSION: Moderate bladder wall thickening, consider correlation with urinalysis for cystitis. No obstructing stone identified. No hydronephrosis. If there is persistent hematuria concern, consider CT IVP to evaluate the upper tracts and cystoscopy to evaluate the lower tracts. Other findings as above. Dictated by: Ang Ny M.D. on 09/30/2022 at 12:06 Approved by: Ang Ny M.D. on 09/30/2022 at 12:11
[2022-09-30 12:03] LABS: Appearance Urine UA CLEAR; Bilirubin Urine UA NEGATIVE (NEGATIVE); Color Urine UA YELLOW; Glucose Urine UA NEGATIVE (Negative); Ketones Urine UA NEGATIVE (NEGATIVE); Leukocyte Esterase Urine UA NEGATIVE (NEGATIVE); Nitrite Urine UA NEGATIVE (Negative); Occult Blood Urine UA TRACE-INTACT (Negative); Protein Urine UA NEGATIVE (Negative); Specific Gravity Urine UA 1.025 (1.000-1.035); Urobilinogen Urine UA 0.2 E.U./dL (0.2)
[2022-09-30 12:06] LABS: Add Manual Diff / Slide Review NO; Basophils Absolute Auto 0 /uL (0-100); Basophils Percent Auto 0.7 % (0-2); Eosinophils Absolute Auto 100 /uL (0-450); Eosinophils Percent Auto 2.1 % (2-4); Hematocrit 43.5 % (41-53); Hemoglobin 14.3 g/dL (13.5-17.5); Lymphocytes Absolute Auto 1500 /uL (1100-4500); Lymphocytes Percent Auto 23.7 % (25-40); Mean Corpuscular HGB Conc 32.8 % (30-36); Mean Corpuscular Hemoglobin 29.2 PG (26-34); Mean Corpuscular Volume 89.1 fL (80-100); Monocytes Absolute Auto 500 /uL (0-900); Neutrophils Absolute Auto 4300 /uL (1500-7000); Neutrophils Percent Auto 66.5 % (50-75); Platelet Count 208 X10^3/uL (150-400); Red Blood Cell Count 4.88 X10^6/uL (4.5-5.9); Red Cell Distribution Width 14.8 % (11.6-14.8); White Blood Cell Count 6.5 X10^3/uL (4.5-11.0)
[2022-09-30 12:20] LABS: Alanine Aminotransferase 46 IU/L (<50); Albumin 4.4 g/dL (3.5-5.0); Albumin Globulin Ratio 1.4 (1.0-2.8); Alkaline Phosphatase 68 U/L (38-126); Aspartate Aminotransferase 29 IU/L (17-59); BUN Creatinine Ratio 18.8 (6-22); Bilirubin Total 0.4 mg/dL (0.2-1.3); Blood Urea Nitrogen 19 mg/dL (9-20); Calcium 9.4 mg/dL (8.4-10.2); Carbon Dioxide 26 mmol/L (22-32); Chloride 106 mmol/L (98-107); Estimated Glomerular Filt Rate > 60 mL/min (>60); Globulin 3.1 g/dL (1.7-4.1); Glucose 98 mg/dL (80-110); HEMOLYSIS < 15 (0-50); Lipase 135 U/L (23-300); Potassium 4.7 mmol/L (3.4-5.1); Sodium 139 mmol/L (137-145); Total Protein 7.5 g/dL (6.3-8.2)
[2022-09-30 12:21] LABS: Cholesterol 162 mg/dL (140-199); HDL Cholesterol 44 mg/dL (40-60); LDL Cholesterol Calculated 85 mg/dL (<100); Triglycerides 164 mg/dL (35-150)
[2022-09-30 12:22] LABS: Bacteria Urine None Seen; Culture Indicated Urine Cult Not Indicated; RBC Urine 0-1/HPF (0-5/HPF); Squamous Epithelial Cell Urine None Seen (0-5/HPF); WBC Urine None Seen (0-5/HPF)
[2022-09-30 15:08] LABS: Prostate Specific Antigen 5.06 ng/mL (0.10-4.00)
--- NOTE | 2022-10-07 12:43 | ED.MALEGU ---
HPI - Male Genitourinary <Dorothea Pepper PA-C - Last Filed: 10/15/22 19:39> General Chief complaint: Urogenital-Male Stated complaint: peeing blood T-2 Time Seen by Provider: 09/30/22 11:36 Source: patient Mode of arrival: Ambulatory History of Present Illness HPI Narrative: 67-year-old male with past medical history kidney cancer, hyperlipidemia, hypertension presents to the ED with 2 days of blood in the urine and small clots. Patient denies any associated pain, your urgency or frequency. Patient has a history of left kidney cancer in the past with a partial nephrectomy. Patient does have a appointment with urologist Dr. Castanon on the 10 of October. Patient denies fever, chills, chest pain, shortness of breath, nausea, vomiting, flank pain, dysuria, abdominal pain, diarrhea, lightheadedness, dizziness, syncope. Related Data Home Medications Medication Instructions Recorded Confirmed aspirin 81 mg tablet,delayed 81 mg PO QPM 11/26/17 12/10/17 release (Adult Low Dose Aspirin) atorvastatin 20 mg tablet 20 mg PO QPM 11/26/17 12/10/17 escitalopram oxalate 10 mg tablet 10 mg PO QPM 11/26/17 12/10/17 (Lexapro) metoprolol tartrate 75 mg tablet 75 mg PO BID 11/26/17 12/10/17 Previous Rx's Medication Instructions Recorded oxycodone 5 mg tablet 5 mg PO Q4-6H PRN pain #20 tabs 11/27/17 Allergies Allergy/AdvReac Type Severity Reaction Status Date / Time No Known Drug Allergies Allergy Verified 05/31/21 18:58 Review of Systems <Dorothea Pepper PA-C - Last Filed: 10/15/22 19:39> Review of Systems ROS Unobtainable: All systems reviewed & are unremarkable except as noted in HPI and below Constitutional Constitutional: Denies chills, Denies fatigue, Denies fever(s), Denies frequent falls, Denies lethargy and Denies weakness Eyes Eyes: Denies change in vision, Denies eye discharge, Denies irritation and Denies loss of vision ENT Ears, Nose, Mouth, and Throat: Denies change in voice, Denies dizziness, Denies neck pain, Denies sore throat and Denies throat swelling Cardiovascular Cardiovascular: Denies chest pain, Denies irregular heart rhythm, Denies lightheadedness, Denies palpitations, Denies dyspnea, Denies dyspnea on exertion and Denies orthopnea Respiratory Respiratory: Denies cough, Denies dyspnea, Denies dyspnea on exertion and Denies wheezing Gastrointestinal Gastrointestinal: Denies abdominal pain, Denies change in bowel habits, Denies diarrhea, Denies nausea and Denies vomiting Genitourinary Genitourinary: Reports hematuria, Denies flank pain, Denies urinary incontinence and Denies urinary urgency Musculoskeletal Musculoskeletal: Denies back pain, Denies muscle weakness, Denies neck pain, Denies numbness and Denies tingling Integumentary/Breasts Skin/Breast: Denies pruritus, Denies erythema, Denies rash and Denies wounds Neurologic Neurologic: Denies behavioral changes, Denies confusion, Denies dizziness, Denies frequent falls, Denies loss of vision, Denies numbness, Denies tingling and Denies weakness Psychiatric Psychiatric: Denies anxiety, Denies behavioral changes, Denies confusion, Denies depression, Denies homicidal ideation and Denies suicidal ideation Endocrine Endocrine: Denies fatigue, Denies flushing and Denies palpitations Hematologic/Lymphatic Hematologic/Lymphatic: Denies easy bruising Allergic/Immunologic Allergic/Immunologic: Denies urticaria, Denies throat swelling and Denies wheezing Patient History <Dorothea Pepper PA-C - Last Filed: 10/15/22 19:39> Medical History Cancer of kidney Hyperlipidemia Hypertension Kidney stones Surgical History History of nephrectomy Social History household members: spouse and family Smoking Status: Current some day smoker Smoking Status: Current some day smoker tobacco type: cigars alcohol intake frequency: holidays/special occasions only Substance Use Type: does not use Exam <Dorothea Pepper PA-C - Last Filed: 10/15/22 19:39> Narrative Exam Narrative: Const General:?cooperative, healthy appearing and comfortable [facility] [place] Head:?normal to inspection Ears:?hearing grossly normal bilaterally Nose:?external nose normal Face and sinus:?normal facial exam and sinuses nontender Mouth:?oral mucosae normal Throat:?posterior oropharynx normal Eyes General:?appearance normal, both eyes and all related structures Neck Neck:?normal visual inspection and no lymphadenopathy noted Resp Effort & Inspection:?normal respiratory effort Auscultation:?clear to auscultation bilaterally Cardio Rate:?regular rate Rhythm:?regular rhythm GI Abdomen is soft, nondistended, nontender to palpation. There is no CVA tenderness. Neuro General:?patient alert, patient awake and patient oriented x3 Initial Vital Signs Initial Vital Signs: Vital Signs Pulse Rate 79 09/30/22 09:48 Pulse Oximetry 96 09/30/22 09:48 <Kaycee Jean-Baptiste DO - Last Filed: 10/17/22 20:15> Initial Vital Signs Initial Vital Signs: Vital Signs Pulse Rate 79 09/30/22 09:48 Pulse Oximetry 96 09/30/22 09:48 MDM - Male Genitourinary <Dorothea Pepper PA-C - Last Filed: 10/15/22 19:39> Lab Data 09/30/22 11:37 09/30/22 11:37 Labs: Lab Results 09/30/22 09/30/22 09/30/22 Range/Units 11:30 11:37 11:37 WBC 6.5 (4.5-11.0) X10^3/uL RBC 4.88 (4.5-5.9) X10^6/uL Hgb 14.3 (13.5-17.5) g/dL Hct 43.5 (41-53) % MCV 89.1 (80-100) fL MCH 29.2 (26-34) PG MCHC 32.8 (30-36) % RDW 14.8 (11.6-14.8) % Plt Count 208 (150-400) X10^3/uL Neut % (Auto) 66.5 (50-75) % Lymph % (Auto) 23.7 L (25-40) % Holmes % (Auto) 7.0 (3-14) % Eos % (Auto) 2.1 (2-4) % Baso % (Auto) 0.7 (0-2) % Neut # (Auto) 4300 (8901-5516) /uL Lymph # (Auto) 1500 (1649-7537) /uL Holmes # (Auto) 500 (0-900) /uL Eos # (Auto) 100 (0-450) /uL Baso # (Auto) 0 (0-100) /uL Sodium 139 (137-145) mmol/L Potassium 4.7 (3.4-5.1) mmol/L Chloride 106 (98-107) mmol/L Carbon Dioxide 26 (22-32) mmol/L BUN 19 (9-20) mg/dL Creatinine 1.01 (0.66-1.25) mg/dL Estimated GFR > 60 (>60) mL/min BUN/Creatinine Ratio 18.8 (6-22) Glucose 98 (80-110) mg/dL Calcium 9.4 (8.4-10.2) mg/dL Total Bilirubin 0.4 (0.2-1.3) mg/dL AST 29 (17-59) IU/L ALT 46 (<50) IU/L Alkaline Phosphatase 68 (38-126) U/L Total Protein 7.5 (6.3-8.2) g/dL Albumin 4.4 (3.5-5.0) g/dL Globulin 3.1 (1.7-4.1) g/dL Albumin/Globulin Ratio 1.4 (1.0-2.8) Triglycerides (35-150) mg/dL Cholesterol (140-199) mg/dL LDL Cholesterol, Calc (<100) mg/dL HDL Cholesterol (40-60) mg/dL Lipase 135 (23-300) U/L Prostate Specific Ag (0.10-4.00) ng/mL Urine Color Yellow Urine Appearance Clear Urine pH 6.0 (4.5-8.0) Ur Specific [place] 1.025 (1.000-1.035) Urine Protein Negative (Negative) Urine Glucose (UA) Negative (Negative) g/dL Urine Ketones Negative (NEGATIVE) Urine Occult Blood Trace-intact (Negative) Urine Nitrate Negative (Negative) Urine Bilirubin Negative (NEGATIVE) Urine Urobilinogen 0.2 (0.2) E.U./dL Ur Leukocyte Esterase Negative (NEGATIVE) Urine RBC 0-1/hpf (0-5/HPF) Urine WBC None seen (0-5/HPF) Ur Squamous Epith Cells None seen (0-5/HPF) Urine Bacteria None seen (None) Ur Culture Indicated? Cult not indicated 04/03/23 04/03/23 Range/Units 12:00 12:00 WBC (4.5-11.0) X10^3/uL RBC (4.5-5.9) X10^6/uL Hgb (13.5-17.5) g/dL Hct (41-53) % MCV (80-100) fL MCH (26-34) PG MCHC (30-36) % RDW (11.6-14.8) % Plt Count (150-400) X10^3/uL Neut % (Auto) (50-75) % Lymph % (Auto) (25-40) % Holmes % (Auto) (3-14) % Eos % (Auto) (2-4) % Baso % (Auto) (0-2) % Neut # (Auto) (5240-1981) /uL Lymph # (Auto) (0394-5177) /uL Holmes # (Auto) (0-900) /uL Eos # (Auto) (0-450) /uL Baso # (Auto) (0-100) /uL Sodium (137-145) mmol/L Potassium (3.4-5.1) mmol/L Chloride (98-107) mmol/L Carbon Dioxide (22-32) mmol/L BUN (9-20) mg/dL Creatinine (0.66-1.25) mg/dL Estimated GFR (>60) mL/min BUN/Creatinine Ratio (6-22) Glucose (80-110) mg/dL Calcium (8.4-10.2) mg/dL Total Bilirubin (0.2-1.3) mg/dL AST (17-59) IU/L ALT (<50) IU/L Alkaline Phosphatase (38-126) U/L Total Protein (6.3-8.2) g/dL Albumin (3.5-5.0) g/dL Globulin (1.7-4.1) g/dL Albumin/Globulin Ratio (1.0-2.8) Triglycerides 164 H (35-150) mg/dL Cholesterol 162 (140-199) mg/dL LDL Cholesterol, Calc 85 (<100) mg/dL HDL Cholesterol 44 (40-60) mg/dL Lipase (23-300) U/L Prostate Specific Ag 5.06 H (0.10-4.00) ng/mL Urine Color Urine Appearance Urine pH (4.5-8.0) Ur Specific [place] (1.000-1.035) Urine Protein (Negative) Urine Glucose (UA) (Negative) g/dL Urine Ketones (NEGATIVE) Urine Occult Blood (Negative) Urine Nitrate (Negative) Urine Bilirubin (NEGATIVE) Urine Urobilinogen (0.2) E.U./dL Ur Leukocyte Esterase (NEGATIVE) Urine RBC (0-5/HPF) Urine WBC (0-5/HPF) Ur Squamous Epith Cells (0-5/HPF) Urine Bacteria (None) Ur Culture Indicated? MDM Narrative Medical decision making narrative: 67-year-old male with past medical history kidney cancer, hyperlipidemia, hypertension presents to the ED with 2 days of blood in the urine and small clots. Concern for UTI versus pyelonephritis versus malignancy versus other. Obtained labs, UA, CT abdomen pelvis. Labs and UA without acute findings. CT abdomen pelvis shows moderate bladder wall thickening, no nephrolithiasis, no hydronephrosis. Discussed findings with patient. Recommend follow-up with Urology as soon as possible and keep the appointment with Dr. Castanon as scheduled, since painless bleeding with urination could likely indicate malignancy, especially given patient's past history with kidney cancer. ED return precautions were also discussed with patient. Patient verbalized understanding. Medical records reviewed: Yes <Kaycee Jean-Baptiste DO - Last Filed: 10/17/22 20:15> Lab Data Labs: Lab Results 09/30/22 09/30/22 09/30/22 Range/Units 11:30 11:37 11:37 WBC 6.5 (4.5-11.0) X10^3/uL RBC 4.88 (4.5-5.9) X10^6/uL Hgb 14.3 (13.5-17.5) g/dL Hct 43.5 (41-53) % MCV 89.1 (80-100) fL MCH 29.2 (26-34) PG MCHC 32.8 (30-36) % RDW 14.8 (11.6-14.8) % Plt Count 208 (150-400) X10^3/uL Neut % (Auto) 66.5 (50-75) % Lymph % (Auto) 23.7 L (25-40) % Holmes % (Auto) 7.0 (3-14) % Eos % (Auto) 2.1 (2-4) % Baso % (Auto) 0.7 (0-2) % Neut # (Auto) 4300 (6019-5595) /uL Lymph # (Auto) 1500 (5243-4324) /uL Holmes # (Auto) 500 (0-900) /uL Eos # (Auto) 100 (0-450) /uL Baso # (Auto) 0 (0-100) /uL Sodium 139 (137-145) mmol/L Potassium 4.7 (3.4-5.1) mmol/L Chloride 106 (98-107) mmol/L Carbon Dioxide 26 (22-32) mmol/L BUN 19 (9-20) mg/dL Creatinine 1.01 (0.66-1.25) mg/dL Estimated GFR > 60 (>60) mL/min BUN/Creatinine Ratio 18.8 (6-22) Glucose 98 (80-110) mg/dL Calcium 9.4 (8.4-10.2) mg/dL Total Bilirubin 0.4 (0.2-1.3) mg/dL AST 29 (17-59) IU/L ALT 46 (<50) IU/L Alkaline Phosphatase 68 (38-126) U/L Total Protein 7.5 (6.3-8.2) g/dL Albumin 4.4 (3.5-5.0) g/dL Globulin 3.1 (1.7-4.1) g/dL Albumin/Globulin Ratio 1.4 (1.0-2.8) Triglycerides (35-150) mg/dL Cholesterol (140-199) mg/dL LDL Cholesterol, Calc (<100) mg/dL HDL Cholesterol (40-60) mg/dL Lipase 135 (23-300) U/L Prostate Specific Ag (0.10-4.00) ng/mL Urine Color Yellow Urine Appearance Clear Urine pH 6.0 (4.5-8.0) Ur Specific [place] 1.025 (1.000-1.035) Urine Protein Negative (Negative) Urine Glucose (UA) Negative (Negative) g/dL Urine Ketones Negative (NEGATIVE) Urine Occult Blood Trace-intact (Negative) Urine Nitrate Negative (Negative) Urine Bilirubin Negative (NEGATIVE) Urine Urobilinogen 0.2 (0.2) E.U./dL Ur Leukocyte Esterase Negative (NEGATIVE) Urine RBC 0-1/hpf (0-5/HPF) Urine WBC None seen (0-5/HPF) Ur Squamous Epith Cells None seen (0-5/HPF) Urine Bacteria None seen (None) Ur Culture Indicated? Cult not indicated 09/30/22 09/30/22 Range/Units 12:00 12:00 WBC (4.5-11.0) X10^3/uL RBC (4.5-5.9) X10^6/uL Hgb (13.5-17.5) g/dL Hct (41-53) % MCV (80-100) fL MCH (26-34) PG MCHC (30-36) % RDW (11.6-14.8) % Plt Count (150-400) X10^3/uL Neut % (Auto) (50-75) % Lymph % (Auto) (25-40) % Holmes % (Auto) (3-14) % Eos % (Auto) (2-4) % Baso % (Auto) (0-2) % Neut # (Auto) (7936-7262) /uL Lymph # (Auto) (3847-0539) /uL Holmes # (Auto) (0-900) /uL Eos # (Auto) (0-450) /uL Baso # (Auto) (0-100) /uL Sodium (137-145) mmol/L Potassium (3.4-5.1) mmol/L Chloride (98-107) mmol/L Carbon Dioxide (22-32) mmol/L BUN (9-20) mg/dL Creatinine (0.66-1.25) mg/dL Estimated GFR (>60) mL/min BUN/Creatinine Ratio (6-22) Glucose (80-110) mg/dL Calcium (8.4-10.2) mg/dL Total Bilirubin (0.2-1.3) mg/dL AST (17-59) IU/L ALT (<50) IU/L Alkaline Phosphatase (38-126) U/L Total Protein (6.3-8.2) g/dL Albumin (3.5-5.0) g/dL Globulin (1.7-4.1) g/dL Albumin/Globulin Ratio (1.0-2.8) Triglycerides 164 H (35-150) mg/dL Cholesterol 162 (140-199) mg/dL LDL Cholesterol, Calc 85 (<100) mg/dL HDL Cholesterol 44 (40-60) mg/dL Lipase (23-300) U/L Prostate Specific Ag 5.06 H (0.10-4.00) ng/mL Urine Color Urine Appearance Urine pH (4.5-8.0) Ur Specific [place] (1.000-1.035) Urine Protein (Negative) Urine Glucose (UA) (Negative) g/dL Urine Ketones (NEGATIVE) Urine Occult Blood (Negative) Urine Nitrate (Negative) Urine Bilirubin (NEGATIVE) Urine Urobilinogen (0.2) E.U./dL Ur Leukocyte Esterase (NEGATIVE) Urine RBC (0-5/HPF) Urine WBC (0-5/HPF) Ur Squamous Epith Cells (0-5/HPF) Urine Bacteria (None) Ur Culture Indicated? Discharge Plan Departure Patient Disposition: Home Clinical Impression: Hematuria Instructions: DI for Hematuria Activity Restrictions/Additional Instructions: You were evaluated in the ED today for blood at the start of urination. Your labs, urine were normal. You do not have a urinary tract infection. Your CT scan shows no kidney stones he does not, however shows a moderately thickened bladder wall, which might possibly be contributing to the bleeding. You will need further workup for this since your history of kidney cancer does put you at risk for other urinary tract cancers. Please follow-up with your urologist as scheduled for the 10 of October for further evaluation. If you are unable to urinate due to increasing clots or bleeding, you experience lightheadedness, chest pain, shortness of breath, please return to the ED immediately. Prescriptions: No Action aspirin [Adult Low Dose Aspirin] 81 mg tablet,delayed release (DR/EC) 81 mg PO QPM escitalopram oxalate [Lexapro] 10 mg tablet 10 mg PO QPM metoprolol tartrate 75 mg tablet 75 mg PO BID atorvastatin 20 mg tablet 20 mg PO QPM oxycodone 5 mg tablet 5 mg PO Q4-6H PRN (Reason: pain) Qty: 20 0RF Referrals: Miscellaneous,Doctor, [Primary Care Provider] - Stand Alone Forms: Patient Portal/API <Kaycee Jean-Baptiste DO - Last Filed: 10/17/22 20:15> Cosign ED Attending Lupeature Attestation: I was immediately available in the department for consultation.
== END 2022-09-30 13:25 | disposition home or self-care (01) ==
PROVIDERS: Emergency Medicine; Nurse Practitioner Acute Care; Emergency Provider Student in an Organized Health Care Education/Training Program
DX: R31.9 Hematuria, unspecified (principal)
CPT/HCPCS: 36415; 74176; 80053; 80061; 81001; 83690; 84153; 85025; 99283; 99284

== ENCOUNTER → 2023-09-02 09:31 | Outpatient (CLI) | payer MEDICARE, OTHER, SELFPAY ==
[2017-11-26 16:40] VITALS: BMI 36.6
[2023-09-02 11:17] LABS: Alanine Aminotransferase 45 IU/L (<50); Albumin 4.1 g/dL (3.5-5.0); Albumin Globulin Ratio 1.6 (1.0-2.8); Alkaline Phosphatase 70 U/L (38-126); Aspartate Aminotransferase 32 IU/L (17-59); BUN Creatinine Ratio 17.9 (6-22); Bilirubin Total 0.6 mg/dL (0.2-1.3); Blood Urea Nitrogen 19 mg/dL (9-20); Calcium 9.6 mg/dL (8.4-10.2); Carbon Dioxide 25 mmol/L (22-32); Chloride 111 mmol/L (98-107); Cholesterol 133 mg/dL (140-199); Estimated Glomerular Filt Rate > 60 mL/min (>60); Globulin 2.5 g/dL (1.7-4.1); Glucose 90 mg/dL (80-110); HDL Cholesterol 47 mg/dL (40-60); HEMOLYSIS < 15 (0-50); LDL Cholesterol Calculated 69 mg/dL (<100); Sodium 140 mmol/L (137-145); Total Protein 6.6 g/dL (6.3-8.2); Triglycerides 87 mg/dL (35-150)
== END ==
LOC: LAB 09:32
PROVIDERS: Referring Provider Nurse Practitioner Acute Care; Visit Provider Nurse Practitioner Acute Care
DX: E78.5 Hyperlipidemia, unspecified (principal)
CPT/HCPCS: 36415; 80053; 80061

== ENCOUNTER → 2023-09-23 11:14 | Outpatient (CLI) | payer MEDICARE, OTHER, SELFPAY ==
[2017-11-26 16:40] VITALS: BMI 36.6
[2023-09-23 12:23] LABS: Free T4, Direct Thyroxine 0.97 ng/dL (0.78-2.19)
[2023-09-23 12:37] LABS: Thyroid Stimulating Hormone 3.45 uIU/mL (0.47-4.68)
== END ==
PROVIDERS: Referring Provider Nurse Practitioner Acute Care; Visit Provider Nurse Practitioner Acute Care
DX: I48.91 Unspecified atrial fibrillation (principal)
CPT/HCPCS: 36415; 84439; 84443

== ENCOUNTER → 2023-10-13 14:37 | Outpatient (CLI) | payer MEDICARE, OTHER, SELFPAY ==
[2017-11-26 16:40] VITALS: BMI 36.6
--- NOTE | 2023-10-13 14:38 | DI.CT.S_ITS ---
PROCEDURE: CT ANGIO CHEST INDICATIONS: Unspecified atrial fibrillation TECHNIQUE: After the administration of intravenous contrast, 3 mm thick sections acquired from the pulmonary apices to the posterior costophrenic angles. 3-dimensional maximum intensity projection (MIP) coronal reformats were then acquired parallel to the pulmonary veins. For radiation dose reduction, the following was used: automated exposure control, adjustment of mA and/or kV according to patient size. COMPARISON: CT, CT KIDNEY URETER BLADDER (KUB), 09/30/2022, 11:45. FINDINGS: Image quality: Excellent. Pulmonary veins: 4 pulmonary veins are identified. * Right superior pulmonary vein: 1.4 cm diameter, 2.5 cm from ostium to 1st order branch. * Right inferior pulmonary vein: 1.9 cm diameter, 3.6 cm from ostium to 1st order branch. * Left superior pulmonary vein: 0.8 cm diameter, 1.3 cm from ostium to 1st order branch. * Left inferior pulmonary vein: 1.6 cm diameter, 2.5 cm from ostium to 1st order branch. * Supernumerary pulmonary veins: none. Lungs and pleura: Lungs are clear. No pleural effusions or pneumothorax. Central and peripheral airways are patent. Mediastinum: Heart size is mildly enlarged. without pericardial effusion. No mediastinal or hilar adenopathy. Thoracic aorta and pulmonary arteries are normal in caliber and enhancement. Esophagus is normal in caliber, without hiatal hernia. Bones and chest wall: No suspicious bony lesions. Ribs and thoracic spine appear intact throughout. No axillary or supraclavicular adenopathy. Thyroid gland is unremarkable . Abdomen: Left Kidney demonstrates postsurgical change with focal scarring, stable. Visualized upper abdominal solid organs appear normal in the early arterial phase of enhancement. IMPRESSION: Pulmonary vein mapping as above. Dictated by: Bertha Freire M.D. on 10/13/2023 at 17:38 Approved by: Bertha Freire M.D. on 10/13/2023 at 17:41
[2023-10-13 15:19] LABS: Estimated Glomerular Filt Rate > 60 mL/min (>60)
== END ==
PROVIDERS: Radiology Diagnostic Radiology; Referring Provider Nurse Practitioner Family; Visit Provider Nurse Practitioner Family
DX: I48.91 Unspecified atrial fibrillation (principal); I51.7 Cardiomegaly
CPT/HCPCS: 36415; 71275; 82565; Q9967

== ENCOUNTER → 2023-10-13 14:54 | Outpatient (CLI) | payer MEDICARE, OTHER, SELFPAY ==
[2017-11-26 16:40] VITALS: BMI 36.6
--- NOTE | 2023-10-14 13:24 | DI.NM.S_ITS ---
DATE OF SERVICE: 10/13/2023 PROCEDURE: Pharmacological perfusion study. INDICATIONS: Atrial fibrillation. RADIOPHARMACEUTICAL: 25.6 millicurie technetium-99m Myoview IV was injected at stress and 24.8 millicurie technetium-99m Myoview IV was injected at rest. CARDIAC STRESS: The patient underwent IV Lexiscan perfusion study under the supervision of an attending staff using standard IV Lexiscan as per protocol. The patient remained hemodynamically stable. Baseline blood pressure was 128/80 and heart rate 71. Baseline EKG showed atrial fibrillation with nonspecific ST-T changes with intermittent PVCs. During stress, the patient remained in AFib with intermittent PVCs without any new ischemic changes. No chest pain. RAW DATA: There is increased subdiaphragmatic activity. Soft tissue shadow seen around heart. The patient's weight is 257 pounds. GATED STUDY: Resting LV ejection fraction 65 and stress LV ejection fraction is 69% without any obvious wall motion abnormalities. Resting end-diastolic volume 150 mL. TID ratio 1.02 which is within normal limits. Lung/heart ratio 0.23, which is within normal limits. MYOCARDIAL PERFUSION SCAN: Stress supine and resting supine images revealed moderate-size moderately decreased perfusion of inferior wall extending into the basal inferolateral wall as well as inferior apex. In addition to that, there is a mildly decreased perfusion of distal anterior wall. During stress prone images, significant improvement in inferior wall, basal inferolateral wall, and inferior apex. Stress prone images remain, showed mildly decreased perfusion of inferior apex. Overall improvement in distal anterior wall defect with mildly decreased perfusion in patchy distribution during stress prone images. No significant ischemia. CONCLUSION: I will call this study likely a normal myocardial perfusion study with evidence of tissue attenuation artifact, which got significantly improved during stress prone images in comparison to stress supine and resting supine images. The patient's weight is 257 pounds. Diaphragmatic shadow as well as soft tissue shadow seen around heart. No wall motion abnormalities. LV ventricular function is preserved. No significant reversible ischemia. Hence, most of the perfusion defect stated above, likely due to tissue attenuation artifact. Correlate clinically. The patient had a perfusion study in June,, that time had significant inferior wall, inferoapical, and inferolateral defect which got significantly improved during stress prone images. Overall, low-risk myocardial perfusion scan. Sridhar Archibald SENIOR ADMINISTRATIVE SERVICES OFFICER/fn/kt doc#: [id number]/job#: [id number] dd: 10/14/2023 12:59:00 dt: 10/14/2023 13:15:00 DICTATING MD/COPIES TO: Yohana Lowery MD COPIES MNE: YOANNA;
== END ==
LOC: NUCM 14:54
PROVIDERS: Referring Provider Nurse Practitioner Family; Visit Provider Nurse Practitioner Family
DX: I48.91 Unspecified atrial fibrillation (principal); I51.7 Cardiomegaly
CPT/HCPCS: 36415; 71275; 78452; 82565; 93017; A9502; J2785; Q9967

== ENCOUNTER → 2023-10-27 16:05 | Outpatient (CLI) | payer MEDICARE, OTHER, SELFPAY ==
[2017-11-26 16:40] VITALS: BMI 36.6
[2023-10-27 17:28] LABS: BUN Creatinine Ratio 17.4 (6-22); Blood Urea Nitrogen 21 mg/dL (9-20); Calcium 9.3 mg/dL (8.4-10.2); Carbon Dioxide 24 mmol/L (22-32); Chloride 110 mmol/L (98-107); Estimated Glomerular Filt Rate > 60 mL/min (>60); Glucose 123 mg/dL (80-110); HEMOLYSIS < 15 (0-50); Sodium 139 mmol/L (137-145)
== END ==
PROVIDERS: Referring Provider Nurse Practitioner Family; Visit Provider Nurse Practitioner Family
DX: I48.91 Unspecified atrial fibrillation (principal)
CPT/HCPCS: 36415; 80048

== ENCOUNTER → 2024-01-06 14:31 | Outpatient (CLI) | payer MEDICARE, OTHER, SELFPAY ==
[2017-11-26 16:40] VITALS: BMI 36.6
[2024-01-09 07:10] LABS: PSA Free % 37.1 % (.); PSA, Total 7.5 ng/mL (0.0-4.0)
== END ==
PROVIDERS: Referring Provider Urology; Visit Provider Urology
DX: R97.20 Elevated prostate specific antigen [PSA] (principal)
CPT/HCPCS: 36415; 84153; 84154

== ENCOUNTER → 2024-12-29 06:31 | Outpatient (CLI) | payer MEDICARE, OTHER, SELFPAY ==
[2017-11-26 16:40] VITALS: BMI 36.6
[2024-12-29 07:47] LABS: Add Manual Diff / Slide Review NO; Hematocrit 41.7 % (41-53); Hemoglobin 13.9 g/dL (13.5-17.5); Lymphocytes Absolute Auto 1400 /uL (1100-4500); Mean Corpuscular HGB Conc 33.3 % (30-36); Mean Corpuscular Hemoglobin 29.5 PG (26-34); Mean Corpuscular Volume 88.7 fL (80-100); Platelet Count 181 X10^3/uL (150-400)
[2024-12-29 08:02] LABS: Hemoglobin A1C% w Est Avg Glu 5.1 % (4.0-6.0)
[2024-12-29 08:14] LABS: Alanine Aminotransferase 30 IU/L (<50); Albumin 4.5 g/dL (3.5-5.0); Albumin Globulin Ratio 2.0 (1.0-2.8); Alkaline Phosphatase 78 U/L (38-126); Blood Urea Nitrogen 26 mg/dL (9-20); Calcium 9.6 mg/dL (8.4-10.2); Carbon Dioxide 23 mmol/L (22-32); Chloride 106 mmol/L (98-107); Cholesterol 121 mg/dL (140-199); Estimated Glomerular Filt Rate > 60 mL/min (>60); Globulin 2.3 g/dL (1.7-4.1); Glucose 94 mg/dL (70-99); HDL Cholesterol 41 mg/dL (40-60); HEMOLYSIS < 15 (0-50); Magnesium 2.1 mg/dL (1.6-2.3); Potassium 4.9 mmol/L (3.4-5.1); Sodium 139 mmol/L (137-145); Total Protein 6.8 g/dL (6.3-8.2); Triglycerides 89 mg/dL (35-150)
[2024-12-29 08:32] LABS: Free T4, Direct Thyroxine 0.83 ng/dL (0.78-2.19)
[2024-12-29 08:45] LABS: Thyroid Stimulating Hormone 4.12 uIU/mL (0.47-4.68)
== END ==
PROVIDERS: Referring Provider Internal Medicine Cardiovascular Disease; Visit Provider Internal Medicine Cardiovascular Disease
DX: I48.91 Unspecified atrial fibrillation (principal)
CPT/HCPCS: 36415; 80053; 80061; 83036; 83735; 84439; 84443; 85025

== ENCOUNTER → 2025-03-10 13:46 | Outpatient (CLI) | payer MEDICARE, OTHER, SELFPAY ==
[2017-11-26 16:40] VITALS: BMI 36.6
[2025-03-13 13:11] LABS: PSA, Total 13.8 ng/mL (0.0-4.0)
== END ==
PROVIDERS: Referring Provider Urology; Visit Provider Urology
DX: R97.20 Elevated prostate specific antigen [PSA] (principal)
CPT/HCPCS: 36415; 84153; 84154